=== PATIENT | female | born 1990 | race Caucasian/White ===

== ENCOUNTER 2017-08-12 18:11 | Emergency (ER) | payer OTHER, MEDICAID, SELFPAY | END 2017-08-13 00:54 | disposition short-term general hospital (02) | PROVIDERS: Emergency Provider Emergency Medicine; Family Provider Family Medicine; PCP Family Medicine; Visit Provider Emergency Medicine | DX: K55.049 Acute infarction of large intestine, extent unspecified (principal) | CPT/HCPCS: 36415; 74177; 76830; 76856; 76857; 80053; 81001; 83605; 83690; 85025; 96361; 96365; 96366; 96375; 96376; 99058; 99285; J2270; J2405; J2550; J3360; Q9967 ==

== ENCOUNTER 2017-12-01 01:01 | Emergency (ER) | payer OTHER, MEDICAID, SELFPAY ==
[2017-12-01 01:22] VITALS: BP 96/74; PULSE 97; RESP 18; TEMP 36.3; O2SAT 99
--- NOTE | 2017-12-01 01:26 | ED_ITS ---
HPI - Fever General Chief Complaint: Fever Stated Complaint: Fever Time Seen by Provider: 12/01/17 01:25 Source: family (Gradmother) Mode of arrival: EMS Limitations: language barrier and physical limitation Related Data Home Medications Medication Instructions Recorded Confirmed MINERAL OIL/PETROLATUM,WHITE 1 oin OPHTH PRN #0 10/22/10 (Refresh Lacri-Lube Ointment) [CALCIUM/MAG/ZINC] 1.5 tbls #0 10/22/10 [FOLATE] 1,000 units PEG Q DAY #0 10/22/10 Nutritional Supplement (#OSMOLITE 3 can GT Q DAY #0 10/23/11 240 ML) acetaminophen 160 mg PO Q4HP PRN #0 02/04/17 12/01/17 Robaxin 12/01/17 clonidine 12/01/17 zolpidem [Ambien] 12/01/17 Previous Rx's Medication Instructions Recorded SIMETHICONE (#SIMETHICONE) 1.2 ml GT Q6HP #30 05/04/12 polyethylene glycol 3350 17 gm PO QDAY PRN #527 pac 02/14/16 morphine concentrate 4 mg PEG Q4HP PRN #30 ml 09/17/16 [BACLOFEN] 10 mg GT TID #200 ml 10/23/16 diazepam 6 mg PEG HS #540 ml 10/23/16 Allergies Allergy/AdvReac Type Severity Reaction Status Date / Time adhesive tape [ADHESIVE TAPE] Allergy Mild SENSITIVITY Verified 12/01/17 01:22 Exam Initial Vital Signs Initial Vital Signs: Vital Signs Temperature 97.4 F L 12/01/17 01:22 Pulse Rate 97 H 12/01/17 01:22 Respiratory Rate 18 12/01/17 01:22 Blood Pressure 96/74 12/01/17 01:22 Pulse Oximetry 99 12/01/17 01:22 Course Orders Ordered: ED Orders 12/01/17 Procalcitonin Stat 12/01/17 01:27 XR chest 1V Stat Blood Culture Stat 12/01/17 01:55 Complete Blood Count AUTO DIFF Stat Comprehensive Metabolic Panel Stat Lactate (Lactic Acid) Stat 12/01/17 02:20 Urinalysis and Microscopic Stat Urine Culture Stat Sodium Chloride (Normal Saline 0.9%) 1,000 mls @ 200 mls/hr IV CONT TARIK Last Admin: 12/01/17 02:56 Dose: 200 mls/hr Discontinued Medications Diazepam (Valium) 2 mg IV NOW ONE Stop: 12/01/17 02:27 Last Admin: 12/01/17 02:43 Dose: 2 mg Gabapentin (Neurontin) 300 mg PO NOW ONE Stop: 12/01/17 02:27 Sodium Chloride (Normal Saline 0.9%) 1,000 mls @ 1,000 mls/hr IV BOLUS ONE Stop: 12/01/17 02:38 Last Infusion: 12/01/17 02:56 Dose: 0 mls/hr Admin: 12/01/17 01:54 Dose: 1,000 mls/hr Ceftriaxone Sodium/Dextrose (Rocephin) 1 gm in 50 mls @ 100 mls/hr IV NOW ONE Stop: 12/01/17 02:55 Last Admin: 12/01/17 02:44 Dose: 100 mls/hr Vital Signs - 8 hr 12/01/17 01:22 Temperature 97.4 F L Pulse Rate 97 H Respiratory Rate 18 Blood Pressure 96/74 Pulse Oximetry 99 MDM - Fever Medical Records Attestation: I reviewed the patient's medical records. Lab Data Result diagrams: 12/01/17 01:55 12/01/17 01:55 Lab Results 12/01/17 12/01/17 12/01/17 Range/Units 01:55 01:55 01:55 WBC 11.2 H (4.5-11.0) X10^3/uL RBC 4.13 (4.0-5.2) X10^6/uL Hgb 13.1 (12.0-16.0) g/dL Hct 37.8 (36-46) % MCV 91.5 (80-100) fL MCH 31.6 (26-34) PG MCHC 34.6 (30-36) % RDW 13.1 (11.6-14.8) % Plt Count 155 (150-400) X10^3/uL Neut % (Auto) 84.7 H (50-75) % Lymph % (Auto) 7.6 L (25-40) % [place] % (Auto) 7.3 (3-14) % Eos % (Auto) 0.3 L (2-4) % Baso % (Auto) 0.1 (0-2) % Neut # (Auto) 9500 H (0214-5566) /uL Sodium 144 (137-145) mmol/L Potassium 4.0 (3.4-5.1) mmol/L Chloride 104 (98-107) mmol/L Carbon Dioxide 30 (22-32) mmol/L BUN 11 (7-17) mg/dL Creatinine 0.30 L (0.52-1.04) mg/dL Estimated GFR > 60.0 (>60) mL/min BUN/Creatinine Ratio 36.7 H (6-22) Glucose 80 (70-100) mg/dL Lactate 1.6 (0.7-2.1) mmol/L Calcium 9.8 (8.4-10.2) mg/dL Total Bilirubin 0.4 (0.2-1.3) mg/dL AST 107 H (14-36) IU/L ALT 135 H (9-52) IU/L Alkaline Phosphatase 288 H (38-126) U/L Total Protein 7.3 (6.3-8.2) g/dL Albumin 3.8 (3.5-5.0) g/dL Globulin 3.5 (1.7-4.1) g/dL Albumin/Globulin Ratio 1.1 (1.0-2.8) Urine Color Urine Appearance Urine pH (4.5-8.0) Ur Specific [place] (1.000-1.035) Urine Protein (Negative) Urine Glucose (UA) (Normal) g/dL Urine Ketones (NEGATIVE) Urine Occult Blood (Negative) Urine Nitrate (Negative) Urine Bilirubin (NEGATIVE) Urine Urobilinogen (0.2) E.U./dL Ur Leukocyte Esterase (NEGATIVE) Urine RBC (0-5/HPF) Urine WBC (0-5/HPF) Ur Squamous Epith Cells Urine Bacteria (None) Urine Mucus (Negative) Ur Culture Indicated? Micro UA Comment 12/01/17 Range/Units 02:20 WBC (4.5-11.0) X10^3/uL RBC (4.0-5.2) X10^6/uL Hgb (12.0-16.0) g/dL Hct (36-46) % MCV (80-100) fL MCH (26-34) PG MCHC (30-36) % RDW (11.6-14.8) % Plt Count (150-400) X10^3/uL Neut % (Auto) (50-75) % Lymph % (Auto) (25-40) % [place] % (Auto) (3-14) % Eos % (Auto) (2-4) % Baso % (Auto) (0-2) % Neut # (Auto) (9813-3545) /uL Sodium (137-145) mmol/L Potassium (3.4-5.1) mmol/L Chloride (98-107) mmol/L Carbon Dioxide (22-32) mmol/L BUN (7-17) mg/dL Creatinine (0.52-1.04) mg/dL Estimated GFR (>60) mL/min BUN/Creatinine Ratio (6-22) Glucose (70-100) mg/dL Lactate (0.7-2.1) mmol/L Calcium (8.4-10.2) mg/dL Total Bilirubin (0.2-1.3) mg/dL AST (14-36) IU/L ALT (9-52) IU/L Alkaline Phosphatase (38-126) U/L Total Protein (6.3-8.2) g/dL Albumin (3.5-5.0) g/dL Globulin (1.7-4.1) g/dL Albumin/Globulin Ratio (1.0-2.8) Urine Color Yellow Urine Appearance Slightly cloudy Urine pH 7.0 (4.5-8.0) Ur Specific [place] 1.010 (1.000-1.035) Urine Protein Negative (Negative) Urine Glucose (UA) Negative (Normal) g/dL Urine Ketones Negative (NEGATIVE) Urine Occult Blood Negative (Negative) Urine Nitrate Positive H (Negative) Urine Bilirubin Negative (NEGATIVE) Urine Urobilinogen 0.2 (0.2) E.U./dL Ur Leukocyte Esterase Negative (NEGATIVE) Urine RBC None seen (0-5/HPF) Urine WBC 1-5/hpf (0-5/HPF) Ur Squamous Epith Cells 0-1 /hpf Urine Bacteria Many (>30) H (None) Urine Mucus 1+ H (Negative) Ur Culture Indicated? Specimen cultured Micro UA Comment Not Reportable Discharge Plan Departure Prescriptions: No Action MINERAL OIL/PETROLATUM,WHITE (Refresh Lacri-Lube Ointment) 1 oin OPHTH PRN Qty: 0 RF: 0 [CALCIUM/MAG/ZINC] 1.5 tbls Qty: 0 RF: 0 [FOLATE] 1,000 units PEG Q DAY Qty: 0 RF: 0 Nutritional Supplement (#OSMOLITE 240 ML) 3 can GT Q DAY Qty: 0 RF: 0 SIMETHICONE (#SIMETHICONE) 1.2 ml GT Q6HP Qty: 30 RF: 2 polyethylene glycol 3350 17 GM powder in packet 17 gm PO QDAY PRNQty: 527 RF: 5 morphine concentrate 20 MG/1 ML syringe 4 mg PEG Q4HP PRNQty: 30 RF: 0 diazepam 5 MG/5 ML solution 6 mg PEG HS Qty: 540 RF: 2 [BACLOFEN] 10 mg GT TID Qty: 200 RF: 3 acetaminophen 160 MG/5 ML liquid 160 mg PO Q4HP PRN (Reason: Fever) Qty: 0 RF: 0 Robaxin RF: 0 clonidine RF: 0 zolpidem [Ambien] 5 mg Tablet RF: 0
--- NOTE | 2017-12-01 01:27 | DI.RAD.S_ITS ---
PROCEDURE: XR CHEST 1V INDICATIONS: Fever. Post operative cholecystectomy TECHNIQUE: One view of the chest was acquired. COMPARISON: None. FINDINGS: Surgical changes and devices: What appears to be a dialysis catheter extends into the right atrium area. Lungs and pleura: No pleural effusions or pneumothorax. Lungs are difficult to assess due to patient tilt and rotation rightward, with probably reduced inspiratory volume. Mediastinum: Mediastinal contours appear normal. Heart size is normal. Bones and chest wall: No suspicious bony lesions. Overlying soft tissues appear unremarkable. IMPRESSION: Probably reduced inspiratory line, mild edema pattern through the lung parenchyma. Suspect volume overload. Double-lumen central venous catheter is suggestive of a dialysis catheter. Mild generalized pulmonary edema is suspected versus ARDS. Dictated by: Deon Montana M.D. on 12/01/2017 at 8:54 Approved by: Deon Montana M.D. on 12/01/2017 at 8:55
[2017-12-01] MEDS: SODIUM CHLORIDE 0.9% 1,000 ML 1000 ML IV (01:54)
[2017-12-01 02:17] LABS: Add Manual Diff / Slide Review NO; Basophils Percent Auto 0.1 % (0-2); Eosinophils Percent Auto 0.3 % (2-4); Hematocrit 37.8 % (36-46); Hemoglobin 13.1 g/dL (12.0-16.0); Lymphocytes Percent Auto 7.6 % (25-40); Mean Corpuscular HGB Conc 34.6 % (30-36); Mean Corpuscular Hemoglobin 31.6 PG (26-34); Mean Corpuscular Volume 91.5 fL (80-100); Monocytes Percent Auto 7.3 % (3-14); Neutrophils Absolute Auto 9500 /uL (3000-5900); Neutrophils Percent Auto 84.7 % (50-75); Platelet Count 155 X10^3/uL (150-400); Red Blood Cell Count 4.13 X10^6/uL (4.0-5.2); Red Cell Distribution Width 13.1 % (11.6-14.8); White Blood Cell Count 11.2 X10^3/uL (4.5-11.0)
[2017-12-01 02:22] LABS: Lactate (Lactic Acid) 1.6 mmol/L (0.7-2.1)
[2017-12-01 02:23] LABS: Alanine Aminotransferase 135 IU/L (9-52); Albumin 3.8 g/dL (3.5-5.0); Albumin Globulin Ratio 1.1 (1.0-2.8); Alkaline Phosphatase 288 U/L (38-126); Aspartate Aminotransferase 107 IU/L (14-36); BUN Creatinine Ratio 36.7 (6-22); Bilirubin Total 0.4 mg/dL (0.2-1.3); Blood Urea Nitrogen 11 mg/dL (7-17); Calcium 9.8 mg/dL (8.4-10.2); Carbon Dioxide 30 mmol/L (22-32); Chloride 104 mmol/L (98-107); Estimated Glomerular Filt Rate > 60.0 mL/min (>60); Globulin 3.5 g/dL (1.7-4.1); Glucose 80 mg/dL (70-100); HEMOLYSIS < 15 (0-50); Sodium 144 mmol/L (137-145); Total Protein 7.3 g/dL (6.3-8.2)
[2017-12-01 02:32] LABS: RBC Urine None Seen (0-5/HPF)
[2017-12-01 02:33] LABS: Bilirubin Urine UA NEGATIVE (NEGATIVE); Color Urine UA YELLOW; Glucose Urine UA NEGATIVE (Normal); Ketones Urine UA NEGATIVE (NEGATIVE); Leukocyte Esterase Urine UA NEGATIVE (NEGATIVE); Nitrite Urine UA POSITIVE (Negative); Occult Blood Urine UA NEGATIVE (Negative); Protein Urine UA NEGATIVE (Negative); Urobilinogen Urine UA 0.2 E.U./dL (0.2)
[2017-12-01] MEDS: diazePAM 10 MG/2 ML SYRINGE 2 MG IV (02:43)
[2017-12-01] MEDS: CEFTRIAXONE 1 GM/50 ML FROZ.PIGGY IV (02:44)
[2017-12-01 02:53] LABS: Appearance Urine UA Slightly Cloudy
[2017-12-01 02:54] LABS: Bacteria Urine Many (>30); Mucus Urine 1+ (Negative); Squamous Epithelial Cell Urine 0-1 /HPF; WBC Urine 1-5/HPF (0-5/HPF)
[2017-12-01 02:55] LABS: Culture Indicated Urine Specimen Cultured
[2017-12-01] MEDS: SODIUM CHLORIDE 0.9% 1,000 ML 200 ML IV (02:56)
[2017-12-01] MEDS: GABAPENTIN 300 MG CAPSULE PO (03:12)
[2017-12-01 03:23] VITALS: BP 104/68; PULSE 109; O2SAT 100
--- NOTE | 2017-12-01 04:15 | ED_ITS ---
HPI - Fever General Chief Complaint: Fever Stated Complaint: Fever Time Seen by Provider: 12/01/17 01:25 Source: family (Gradmother) Mode of arrival: EMS Limitations: language barrier and physical limitation History of Present Illness HPI Narrative: The patient resides on [place]. she is nonverbal and extremely handicapped due to cerebral palsy. She underwent lap choly and resection of a necrotic transverse colon August 2017 at [facility]. She has a colostomy and a feeding tube in place. She takes nothing p.o.. She arrives by [facility]. Her grandmother is with her and tells me the patient was flushed and felt warm this morning. She has a mild cough. She has had no fever. She seems uncomfortable. Her grandmother thinks her stomach is bothering her. She has received here for feedings and her fluids. Output from the colostomy seems to be diminished. Related Data Home Medications Medication Instructions Recorded Confirmed MINERAL OIL/PETROLATUM,WHITE 1 oin OPHTH PRN #0 10/22/10 (Refresh Lacri-Lube Ointment) [CALCIUM/MAG/ZINC] 1.5 tbls #0 10/22/10 [FOLATE] 1,000 units PEG Q DAY #0 10/22/10 Nutritional Supplement (#OSMOLITE 3 can GT Q DAY #0 10/23/11 240 ML) acetaminophen 160 mg PO Q4HP PRN #0 02/04/17 12/01/17 Robaxin 12/01/17 clonidine 12/01/17 zolpidem [Ambien] 12/01/17 Previous Rx's Medication Instructions Recorded SIMETHICONE (#SIMETHICONE) 1.2 ml GT Q6HP #30 05/04/12 polyethylene glycol 3350 17 gm PO QDAY PRN #527 pac 02/14/16 morphine concentrate 4 mg PEG Q4HP PRN #30 ml 09/17/16 [BACLOFEN] 10 mg GT TID #200 ml 10/23/16 diazepam 6 mg PEG HS #540 ml 10/23/16 amoxicillin-pot clavulanate 7 ml PO Q12H 10 Days #140 ml 12/01/17 [Augmentin ES-] Allergies Allergy/AdvReac Type Severity Reaction Status Date / Time adhesive tape [ADHESIVE TAPE] Allergy Mild SENSITIVITY Verified 12/01/17 01:22 Review of Systems Review of Systems unobtainable due to mental condition [facility] Medical History Cerebral palsy (Acute) Surgical History H/O resection of large bowel (Acute) History of cholecystectomy (Acute) Exam Narrative Exam Narrative: Patient is awake, but not verbally or physically responsive to verbal input or physical touch. She has severe contractures well extremities. Initial Vital Signs Initial Vital Signs: Vital Signs Temperature 97.4 F L 12/01/17 01:22 Pulse Rate 97 H 12/01/17 01:22 Respiratory Rate 18 12/01/17 01:22 Blood Pressure 96/74 12/01/17 01:22 Pulse Oximetry 99 12/01/17 01:22 Const Nutritional Appearance: well nourished Limitations: behavioral limitations, language barrier and physical limitations HENMT Head: normal to inspection, normocephalic and atraumatic Face and sinus: normal facial exam Mouth: oral mucosae normal Eyes Conjunctivae: conjunctivae normal Neck Neck: normal visual inspection and No lymphadenopathy Chest Chest: normal inspection of the chest Other: Central line to the right upper chest. Resp Effort & Inspection: normal respiratory effort Auscultation: rales on the left in the lower lung [place] and no wheezes Cardio Rate: regular rate Rhythm: regular rhythm Heart Sounds: no click, no gallops, no murmurs and no rubs Pulses: normal peripheral pulses GI Inspection: non-distended and other (She has a colostomy in place with fecal output from the colostomy. There is also a feeding tube in place.) Palpation: soft, no hepatosplenomegaly, No guarding, No pulsatile mass and No tender Auscultation: normal bowel sounds Back/Spine/Pelvis Back: normal to inspection Skin General: no rashes or lesions noted Neuro General: alert and other (Severe contractures, no verbal response.) Extrem General: other (Severe contractures. Edema in all extremities.) Course Orders Ordered: ED Orders 12/01/17 01:27 XR chest 1V Stat Blood Culture Stat 12/01/17 01:55 Complete Blood Count AUTO DIFF Stat Comprehensive Metabolic Panel Stat Lactate (Lactic Acid) Stat 12/01/17 02:20 Urinalysis and Microscopic Stat Urine Culture Stat Sodium Chloride (Normal Saline 0.9%) 1,000 mls @ 200 mls/hr IV CONT TARIK Last Admin: 12/01/17 02:56 Dose: 200 mls/hr Discontinued Medications Diazepam (Valium) 2 mg IV NOW ONE Stop: 12/01/17 02:27 Last Admin: 12/01/17 02:43 Dose: 2 mg Gabapentin (Neurontin) 300 mg PO NOW ONE Stop: 12/01/17 02:27 Last Admin: 12/01/17 03:12 Dose: 300 mg Sodium Chloride (Normal Saline 0.9%) 1,000 mls @ 1,000 mls/hr IV BOLUS ONE Stop: 12/01/17 02:38 Last Infusion: 12/01/17 02:56 Dose: 0 mls/hr Admin: 12/01/17 01:54 Dose: 1,000 mls/hr Ceftriaxone Sodium/Dextrose (Rocephin) 1 gm in 50 mls @ 100 mls/hr IV NOW ONE Stop: 12/01/17 02:55 Last Infusion: 12/01/17 03:15 Dose: 0 mls/hr Admin: 12/01/17 02:44 Dose: 100 mls/hr Vital Signs - 8 hr 12/01/17 01:22 12/01/17 03:23 Temperature 97.4 F L Pulse Rate 97 H 109 H Respiratory Rate 18 Blood Pressure 96/74 Blood Pressure [Left Arm] 104/68 Pulse Oximetry 99 100 MDM - Fever Medical Records Attestation: I reviewed the patient's medical records. Lab Data Attestation: I reviewed the patient's lab results. Result diagrams: 12/01/17 01:55 12/01/17 01:55 Lab Results 12/01/17 12/01/17 12/01/17 Range/Units 01:55 01:55 01:55 WBC 11.2 H (4.5-11.0) X10^3/uL RBC 4.13 (4.0-5.2) X10^6/uL Hgb 13.1 (12.0-16.0) g/dL Hct 37.8 (36-46) % MCV 91.5 (80-100) fL MCH 31.6 (26-34) PG MCHC 34.6 (30-36) % RDW 13.1 (11.6-14.8) % Plt Count 155 (150-400) X10^3/uL Neut % (Auto) 84.7 H (50-75) % Lymph % (Auto) 7.6 L (25-40) % [place] % (Auto) 7.3 (3-14) % Eos % (Auto) 0.3 L (2-4) % Baso % (Auto) 0.1 (0-2) % Neut # (Auto) 9500 H (8646-1374) /uL Sodium 144 (137-145) mmol/L Potassium 4.0 (3.4-5.1) mmol/L Chloride 104 (98-107) mmol/L Carbon Dioxide 30 (22-32) mmol/L BUN 11 (7-17) mg/dL Creatinine 0.30 L (0.52-1.04) mg/dL Estimated GFR > 60.0 (>60) mL/min BUN/Creatinine Ratio 36.7 H (6-22) Glucose 80 (70-100) mg/dL Lactate 1.6 (0.7-2.1) mmol/L Calcium 9.8 (8.4-10.2) mg/dL Total Bilirubin 0.4 (0.2-1.3) mg/dL AST 107 H (14-36) IU/L ALT 135 H (9-52) IU/L Alkaline Phosphatase 288 H (38-126) U/L Total Protein 7.3 (6.3-8.2) g/dL Albumin 3.8 (3.5-5.0) g/dL Globulin 3.5 (1.7-4.1) g/dL Albumin/Globulin Ratio 1.1 (1.0-2.8) Procalcitonin Urine Color Urine Appearance Urine pH (4.5-8.0) Ur Specific [place] (1.000-1.035) Urine Protein (Negative) Urine Glucose (UA) (Normal) g/dL Urine Ketones (NEGATIVE) Urine Occult Blood (Negative) Urine Nitrate (Negative) Urine Bilirubin (NEGATIVE) Urine Urobilinogen (0.2) E.U./dL Ur Leukocyte Esterase (NEGATIVE) Urine RBC (0-5/HPF) Urine WBC (0-5/HPF) Ur Squamous Epith Cells Urine Bacteria (None) Urine Mucus (Negative) Ur Culture Indicated? Micro UA Comment 12/01/17 12/01/17 Range/Units 02:20 Unknown WBC (4.5-11.0) X10^3/uL RBC (4.0-5.2) X10^6/uL Hgb (12.0-16.0) g/dL Hct (36-46) % MCV (80-100) fL MCH (26-34) PG MCHC (30-36) % RDW (11.6-14.8) % Plt Count (150-400) X10^3/uL Neut % (Auto) (50-75) % Lymph % (Auto) (25-40) % [place] % (Auto) (3-14) % Eos % (Auto) (2-4) % Baso % (Auto) (0-2) % Neut # (Auto) (4959-9313) /uL Sodium (137-145) mmol/L Potassium (3.4-5.1) mmol/L Chloride (98-107) mmol/L Carbon Dioxide (22-32) mmol/L BUN (7-17) mg/dL Creatinine (0.52-1.04) mg/dL Estimated GFR (>60) mL/min BUN/Creatinine Ratio (6-22) Glucose (70-100) mg/dL Lactate (0.7-2.1) mmol/L Calcium (8.4-10.2) mg/dL Total Bilirubin (0.2-1.3) mg/dL AST (14-36) IU/L ALT (9-52) IU/L Alkaline Phosphatase (38-126) U/L Total Protein (6.3-8.2) g/dL Albumin (3.5-5.0) g/dL Globulin (1.7-4.1) g/dL Albumin/Globulin Ratio (1.0-2.8) Procalcitonin Cancelled Urine Color Yellow Urine Appearance Slightly cloudy Urine pH 7.0 (4.5-8.0) Ur Specific [place] 1.010 (1.000-1.035) Urine Protein Negative (Negative) Urine Glucose (UA) Negative (Normal) g/dL Urine Ketones Negative (NEGATIVE) Urine Occult Blood Negative (Negative) Urine Nitrate Positive H (Negative) Urine Bilirubin Negative (NEGATIVE) Urine Urobilinogen 0.2 (0.2) E.U./dL Ur Leukocyte Esterase Negative (NEGATIVE) Urine RBC None seen (0-5/HPF) Urine WBC 1-5/hpf (0-5/HPF) Ur Squamous Epith Cells 0-1 /hpf Urine Bacteria Many (>30) H (None) Urine Mucus 1+ H (Negative) Ur Culture Indicated? Specimen cultured Micro UA Comment Not Reportable Imaging Data Chest x-ray: My impression: LLL pneumonia MDM Narrative Medical decision making narrative: The patient has had a cough. She is not coughing now. She also does not have a fever now. Exam was suggestive of a LLL pneumonia, this is confirmed by chest x-ray. Lab data does not indicate sepsis. She has no hypoxia by monitoring. She was given IV Rocephin, she will be discharged on Augmentin. Her mother and grandmother are comfortable with this plan. Discharge Plan Departure Patient Disposition: Home, Self-Care Clinical Impression: Pneumonia Instructions: DI for Pneumonia -- Adult Activity Restrictions/Additional Instructions: Augmentin 2 times daily as prescribed. Be sure she is taking in plenty of fluids. Return for persisting fever or difficulty breathing. Recheck with her doctor in about 2 weeks. Prescriptions: New amoxicillin-pot clavulanate [Augmentin ES-600] 600-42.9 mg/5 mL suspension for reconstitution 7 ml PO Q12H 10 Days Qty: 140 RF: 0 No Action MINERAL OIL/PETROLATUM,WHITE (Refresh Lacri-Lube Ointment) 1 oin OPHTH PRN Qty: 0 RF: 0 [CALCIUM/MAG/ZINC] 1.5 tbls Qty: 0 RF: 0 [FOLATE] 1,000 units PEG Q DAY Qty: 0 RF: 0 Nutritional Supplement (#OSMOLITE 240 ML) 3 can GT Q DAY Qty: 0 RF: 0 SIMETHICONE (#SIMETHICONE) 1.2 ml GT Q6HP Qty: 30 RF: 2 polyethylene glycol 3350 17 GM powder in packet 17 gm PO QDAY PRNQty: 527 RF: 5 morphine concentrate 20 MG/1 ML syringe 4 mg PEG Q4HP PRNQty: 30 RF: 0 diazepam 5 MG/5 ML solution 6 mg PEG HS Qty: 540 RF: 2 [BACLOFEN] 10 mg GT TID Qty: 200 RF: 3 acetaminophen 160 MG/5 ML liquid 160 mg PO Q4HP PRN (Reason: Fever) Qty: 0 RF: 0 Robaxin RF: 0 clonidine RF: 0 zolpidem [Ambien] 5 mg Tablet RF: 0
== END 2017-12-01 08:19 | disposition home or self-care (01) ==
PROVIDERS: Emergency Provider Emergency Medicine; Family Provider Family Medicine; PCP Family Medicine
DX: J18.9 Pneumonia, unspecified organism (principal)
CPT/HCPCS: 36415; 71045; 80053; 81001; 83605; 85025; 87040; 87077; 87086; 87186; 96361; 96365; 96375; 99283; 99284; J3360